=== PATIENT | female | born 1985 | race Caucasian/White ===

== ENCOUNTER 2016-09-29 14:50 | Outpatient (CLI) | payer OTHER | END 2016-09-29 14:51 | disposition home or self-care (01) | LOC: LAB.R 14:50 | PROVIDERS: ATTEND Physician Assistant Medical | DX: N30.01 Acute cystitis with hematuria (principal) | CPT/HCPCS: 87086 ==

== ENCOUNTER 2018-01-18 10:20 | Outpatient (CLI) | payer OTHER ==
[2018-01-18 10:30] LABS: HCG UR QUAL NEGATIVE
== END 2018-01-18 10:21 | disposition home or self-care (01) ==
LOC: LAB.R 10:20
PROVIDERS: ATTEND Physician Assistant Medical
DX: R10.2 Pelvic and perineal pain (principal); Z97.5 Presence of (intrauterine) contraceptive device; N30.00 Acute cystitis without hematuria
CPT/HCPCS: 81025; 87086

== ENCOUNTER 2018-01-18 12:04 | Outpatient (CLI) | payer OTHER ==
--- NOTE | 2018-01-18 15:20 | Ultrasound Report ---
Reason: PELVIC PAIN Procedure Date: 01/18/2018 Accession Number: [id number] / [id number] Procedure: US - Pelvic w/Transvaginal CPT Code: FULL RESULT: EXAM: PELVIC ULTRASOUND EXAM DATE: 01/18/2018 01:11 PM. CLINICAL HISTORY: PELVIC PAIN. LMP 10 518 COMPARISON: OB ultrasound 02/24/2014 TECHNIQUE: Realtime transabdominal pelvic scan performed to identify the uterus and adnexa and as an overview of other pelvic structures, followed by transvaginal scan to provide greater detail of the uterus and adnexa, with static image documentation. FINDINGS: Uterus: 8.9 x 3.5 x 5.2 cm, volume 85 cc. Anteverted position. Normal overall size and echotexture. Masses: None. Endometrium: 2.2 mm. IUD normally positioned within the endometrial canal Cervix: Unremarkable. Right Ovary: 2.5 x 1.9 x 2 cm, volume 6.9 cc. Normal echotexture and blood flow. Left Ovary: 3.2 x 1.8 x 2.2 cm, volume 6.6 cc. Normal echotexture and blood flow. Free Fluid: None. Other: None. IMPRESSION: Normal pelvic ultrasound. IUD normally positioned within the endometrial canal. RADIA
== END 2018-01-18 12:05 | disposition home or self-care (01) ==
LOC: DI 12:04
PROVIDERS: ATTEND Physician Assistant Medical
DX: R10.2 Pelvic and perineal pain (principal); Z97.5 Presence of (intrauterine) contraceptive device; N30.00 Acute cystitis without hematuria
CPT/HCPCS: 76830; 76856; 81025; 87086

== ENCOUNTER 2018-09-02 08:30 | Outpatient (CLI) | payer OTHER ==
[2018-09-02 12:26] LABS: BILIRUBIN,URINE NEGATIVE (NEGATIVE); GLUCOSE, URINE (UA) NEGATIVE (NEGATIVE); KETONES,URINE (UA) NEGATIVE (NEGATIVE); LEUKOCYTE ESTERASE, URINE SMALL (NEGATIVE); NITRITE,URINE NEGATIVE (NEGATIVE); OCCULT BLOOD,URINE MODERATE (NEGATIVE); PH,URINE 6.5 PH (5.0-7.5); PROTEIN,URINE NEGATIVE (NEGATIVE); UROBILINOGEN,URINE 0.2 (NORMAL) E.U./dL (NORMAL)
[2018-09-02 12:30] LABS: CLARITY,URINE CLEAR (CLEAR)
[2018-09-02 12:41] LABS: BACTERIA,URINE None Seen /HPF (None Seen); SQUAMOUS EPITHELIAL CELL,UR NONE SEEN (<= Few)
== END 2018-09-02 23:59 | disposition home or self-care (01) ==
LOC: LAB.R 08:30
PROVIDERS: ATTEND Nurse Practitioner
DX: N39.0 Urinary tract infection, site not specified (principal)
CPT/HCPCS: 81001; 81003; 87086

== ENCOUNTER 2018-09-28 16:58 | Outpatient (CLI) | payer OTHER ==
[2018-09-29 15:30] LABS: BILIRUBIN,URINE NEGATIVE (NEGATIVE); GLUCOSE, URINE (UA) NEGATIVE (NEGATIVE); KETONES,URINE (UA) NEGATIVE (NEGATIVE); LEUKOCYTE ESTERASE, URINE NEGATIVE (NEGATIVE); NITRITE,URINE NEGATIVE (NEGATIVE); OCCULT BLOOD,URINE NEGATIVE (NEGATIVE); PROTEIN,URINE NEGATIVE (NEGATIVE); UROBILINOGEN,URINE 0.2 (NORMAL) E.U./dL (NORMAL)
[2018-09-29 15:44] LABS: CLARITY,URINE CLEAR (CLEAR)
[2018-09-29 15:45] LABS: BACTERIA,URINE None Seen /HPF (None Seen); RBC,URINE 0-5 /HPF (0-5); SQUAMOUS EPITHELIAL CELL,UR RARE Squamous (<= Few)
[2018-09-29 22:59] LABS: CANDIDA GROUP DNA NEGATIVE (NEGATIVE); CANDIDA KRUSEI DNA NEGATIVE (NEGATIVE); TRICHOMONAS VAGINALIS DNA NEGATIVE (NEGATIVE)
== END 2018-09-28 23:59 | disposition home or self-care (01) ==
LOC: LAB.R 16:58
PROVIDERS: ATTEND Obstetrics & Gynecology
DX: N30.00 Acute cystitis without hematuria (principal); R10.2 Pelvic and perineal pain; N89.8 Other specified noninflammatory disorders of vagina
CPT/HCPCS: 81001; 87077; 87086; 87181; 87661; 87801

== ENCOUNTER 2019-09-01 16:17 | Outpatient (CLI) | payer OTHER ==
--- NOTE | 2019-09-08 10:07 | Ultrasound Report ---
Reason: PRESENCE OF IUD - ASSESS LOCATION Procedure Date: 09/01/2019 Accession Number: [id number] / [id number] Procedure: US - Pelvic Complete CPT Code: Final Report FULL RESULT: PROCEDURE: Pelvic Complete INDICATIONS: PRESENCE OF IUD - ASSESS LOCATION TECHNIQUE: Real-time transabdominal scanning was performed of the pelvic organs, with image documentation. Transvaginal exam was refused by the patient. COMPARISON: 01/18/2018. FINDINGS: Uterus: Uterus is normal in size at 10.5 x 4.3 x 3.9 cm. Endometrium measures 5 mm in combined thickness. IUD appears centered in the uterine cavity. Ovaries: Within normal limits. Right ovary measures 3.3 x 2.3 x 1.2 cm. Left ovary measures 2.9 x 2.7 x 1.9 cm. Other: No free pelvic fluid. IMPRESSION: Exam is somewhat limited without transvaginal portion. 1. IUD appears centered in the uterine cavity. 2. Uterus/endometrium and ovaries are within normal limits. Note: [employer] worksheet reports bilateral extrarenal pelvis or dilated proximal ureters. However, no images are available to confirm this finding. If concern for patients renal function or hydronephrosis recommend dedicated renal ultrasound. Reviewed by: Cl Sorensen MD on 09/08/2019 10:05 AM PDT Approved by: Cl Sorensen MD on 09/08/2019 10:05 AM PDT Station ID: [id number]
== END 2019-09-01 16:18 | disposition home or self-care (01) ==
LOC: DI 16:17
PROVIDERS: ATTEND Obstetrics & Gynecology
DX: Z97.5 Presence of (intrauterine) contraceptive device (principal)
CPT/HCPCS: 76830; 76856

== ENCOUNTER 2019-09-19 16:00 | Outpatient (CLI) | payer OTHER | END 2019-09-19 16:01 | disposition home or self-care (01) | LOC: LAB 16:00 | PROVIDERS: ATTEND Obstetrics & Gynecology | DX: Z01.812 Encounter for preprocedural laboratory examination (principal); Z11.59 Encounter for screening for other viral diseases | CPT/HCPCS: 81599 ==

== ENCOUNTER 2019-09-19 16:15 | Outpatient (CLI) | payer OTHER ==
[2019-09-19 18:12] LABS: BASOPHILS % (AUTO) 0.3 %; EOSINOPHILS # (AUTO) 0.1 10^3/uL (0.0-0.7); EOSINOPHILS % (AUTO) 0.9 %; HGB - HEMOGLOBIN 13.3 g/dL (12.0-16.0); LYMPHOCYTES # (AUTO) 1.7 10^3/uL (1.5-3.5); LYMPHOCYTES % (AUTO) 24.5 %; MEAN CORPUSCULAR HEMOGLOBIN 31.1 pg (27.0-31.0); MEAN CORPUSCULAR HGB CONC 33.3 g/dL (32.0-36.0); MEAN CORPUSCULAR VOLUME 93.7 fL (81.0-99.0); MONOCYTES # (AUTO) 0.5 10^3/uL (0.0-1.0); MONOCYTES % (AUTO) 7.2 %; NEUTROPHILS # (AUTO) 4.6 10^3/uL (1.5-6.6); NEUTROPHILS % (AUTO) 66.8 %; PLT - PLATELET COUNT 226 10^3/uL (130-450); RED BLOOD COUNT 4.27 10^6/uL (4.20-5.40); RED CELL DISTRIBUTION WIDTH 12.3 % (12.0-15.0); WHITE BLOOD COUNT 6.9 x10^3/uL (4.8-10.8)
== END 2019-09-19 23:59 | disposition home or self-care (01) ==
LOC: LAB.R 16:15
PROVIDERS: ATTEND Nurse Practitioner
DX: Z01.812 Encounter for preprocedural laboratory examination (principal); Z11.59 Encounter for screening for other viral diseases; Z97.5 Presence of (intrauterine) contraceptive device
CPT/HCPCS: 81599; 85025

== ENCOUNTER 2019-09-22 07:14 | Day surgery (SDC) | payer OTHER ==
[~2019-09-22 07:14] MED LIST: ACETAMINOPHEN 1,000 MG/100 ML 100 ML IV ONE; CELECOXIB 100 MG CAPSULE PO ONE; GABAPENTIN 400 MG CAPSULE ONE
[2019-09-22] MEDS ORDERED: KETAMINE 500 MG/10 ML VIAL IVP ONE (07:15)
[2019-09-22] MEDS ORDERED: ePHEDrine 50 MG/ML VIAL IVP ONE (07:15)
[2019-09-22] MEDS ORDERED: ONDANSETRON 4 MG/2 ML VIAL IVP ONE (07:15)
[2019-09-22] MEDS ORDERED: DEXAMETHASONE 4 MG/ML VIAL IVP ONE (07:15)
[2019-09-22] MEDS ORDERED: PROPOFOL 200 MG/20 ML VIAL IVP ONE (07:15)
[2019-09-22] MEDS ORDERED: MIDAZOLAM 2 MG/2 ML VIAL IVP ONE (07:15)
[2019-09-22 07:35] LABS: HCG UR QUAL NEGATIVE
[2019-09-22] MEDS ORDERED: LACTATED RINGERS 1,000 ML IV ONE (07:38)
--- NOTE | 2019-09-22 08:43 | ANESTHESIA ---
Pre-Anesthesia VS, & Labs - Diagnosis retained, IUD - Procedure hysterscopic retrival of IUD. Mirena IUD replacement possible laparoscopic retrieval of IUD Vital Signs: Temp Pulse Resp BP Pulse Ox 36.5 C 60 16 108/65 100 09/22/19 07:19 09/22/19 07:19 09/22/19 07:19 09/22/19 07:19 09/22/19 07:19 Height 5 ft 6 in Weight (kg) 69 kg - NPO >8 hours - Is Patient ?: No - Lab Results Current Lab Results: Laboratory Tests 09/22/19 07:39: POC Whole Bld Glucose 92 Home Medications and Allergies Home Medications: Ambulatory Orders Cholecalciferol [Vitamin D3] 2,000 unit PO DAILY 09/19/19 Loratadine [Claritin] 10 mg PO DAILY 09/19/19 Multivitamin 1 each PO DAILY 09/19/19 Cholecalciferol [Vitamin D3] 2,000 unit PO DAILY 09/19/19 Loratadine [Claritin] 10 mg PO DAILY 09/19/19 Multivitamin 1 each PO DAILY 09/19/19 Allergies/Adverse Reactions: Allergies Allergy/AdvReac Type Severity Reaction Status Date / Time No Known Drug Allergies Allergy Verified 04/26/14 12:26 Anes History & Medical History - Anesthetic History Anesthesia Complications: reports: No previous complications - Medical History Cardiovascular: reports: None Pulmonary: reports: None Gastrointestinal: reports: None Urinary: reports: None Neuro: reports: None Musculoskeletal: reports: None Endocrine/Autoimmune: reports: None Blood Disorders: reports: None Skin: reports: None Smoking Status: Never smoker Psychosocial: reports: Cannabis (daily) - Surgical History General: Appendectomy Eyes Ears Nose Throat (EENT): Tonsil/Adenoidectomy Gynecologic: section Exam General: Alert, Oriented x3, Cooperative, No acute distress Dental: WNL Mouth Openin Fingerbreadth Neck Mobility: Normal Mallampati classification: I Thyromental Distance: greater than 6 cm Respiratory: Lungs clear, Normal breath sounds, No respiratory distress, No acce ssory muscle use Cardiovascular: Regular rate, Normal S1, Normal S2, No murmurs Mental/Cognitive Status: Alert/Oriented X3, Normal for patient Plan Anesthesia Type: General Consent for Procedure(s) Verified and Reviewed: Yes Code Status: Attempt Resuscitation ASA classification: 1-Healthy patient Is this case an emergency?: No
[2019-09-22] MEDS ORDERED: LEVONORGESTREL 20 MCG/24H IUD IY ONE ×2 (09:33→10:16)
[2019-09-22] MEDS ORDERED: LIDOCAINE 1%-EPI 1:100000 20 ML MDV ONE (09:33)
[2019-09-22] MEDS ORDERED: LIDOCAINE 1%-EPI 1:100000 20 ML MDV SUBQ ONE ×2 (09:48)
--- NOTE | 2019-09-22 10:50 | OPERATIVE REPORT ---
Operative Report - General Procedure Date: 09/22/19 Planned Procedure: Hysteroscopic removal of IUD Insertion of Mirena IUD Pre-Op Diagnosis: Retained IUD with missing IUD strings. Failed attempt at removal Procedure Performed: Hysteroscopic removal of retained IUD Insertion of Mirena IUD, Lot# [id number] Post Op Diagnosis: Same - Procedure Note Primary Surgeon: Vicki Green MD Anesthesia Provider: Elian Carter CRNA Anesthesia Technique: General LMA Pathology: None IV Fluids (mL): 700 Estimated Blood Loss (mL): 10 Indications: Patient is a 34 yo female with an Mirena IUD that needs replacement. The IUD strings are retained within the uterus and attempts at intrauterine removal in clinic were not successful. Formal us showed intrauterine placement of the IUD. She presents today for hysteroscopic retrieval of the IUD and replacement with a new IUD. Risks/benefits/alternatives were reviewed and consents were obtained and confirmed. Findings: Parous cervix without visible strings. IUD embedded within the uterine cavity. After removal of the IUD, the uterine cavity was smooth and without structural defect or abnormality and bilateral tubal ostia were noted. Complications: None - Other Other Information/Narrative: Risks benefits and alternatives to the procedure were reviewed. Consent was again confirmed. Patient was taken to the operating room where she underwent general anesthesia. She was positioned in dorsolithotomy position with legs resting in yellowfin stirrups. She was prepped and draped in the usual sterile fashion. Preoperative antibiotics were not indicated. Preoperative checklist was performed. Exam under anesthesia was performed. Speculum was placed in the vagina and the cervix was visualized. Single-tooth tenaculum was placed at the anterior cervical lip. Paracervical block was administered using a total of 20 cc of 1% lidocaine with epinephrine was injected at the 4:00 and 8:00 positions lateral to the portio of the cervix. The cervical os was serially dilated with Hegar dilators to accommodate the caliber of the diagnostic hysteroscope. Uterus sounded to 9 cm. An IUD hook was inserted into the uterus to attempt blind removal fo the IUD. Several passes of the IUD hook were not successful in retreieving the IUD. The hysteroscope was inserted and findings were noted as above. The hysteroscopic grasper was inserted through the operative port. The IUD was grasped and removed from the uterine cavity without difficulty. The hysteroscope was reinserted to examined the uterine cavity. Uterine cavity was smooth at close of the procedure. Hysteroscope was removed. The Mirena IUD was inserted according to package directions. Strings were trimmed to 3-4 cm. Tenaculum was removed. Tenaculum sites were noted to be hemostatic. All instruments were removed from the vagina. Procedure was well-tolerated without complication. Fluid deficit: 250 cc NS
[2019-09-22] MEDS ORDERED: oxyCODONE 5 MG TABLET PO PRN (11:03)
[2019-09-22 12:30] VITALS: BP 117/70
== END 2019-09-22 07:15 | disposition home or self-care (01) ==
LOC: SDS 07:14
PROVIDERS: ATTEND Obstetrics & Gynecology
DX: Z30.433 Encounter for removal and reinsertion of intrauterine contraceptive device (principal); T83.39XA Other mechanical complication of intrauterine contraceptive device, initial encounter
CPT/HCPCS: 58300; 58562; 81025; A9270; J0131; J7120; J7298

== ENCOUNTER 2020-04-30 08:00 | Outpatient (CLI) | payer OTHER ==
[2020-04-30 21:43] LABS: CANDIDA GROUP DNA NEGATIVE (NEGATIVE); CANDIDA KRUSEI DNA NEGATIVE (NEGATIVE); TRICHOMONAS VAGINALIS DNA NEGATIVE (NEGATIVE)
== END 2020-04-30 23:59 | disposition home or self-care (01) ==
LOC: LAB.R 08:00
PROVIDERS: ATTEND Obstetrics & Gynecology
DX: B37.9 Candidiasis, unspecified (principal)
CPT/HCPCS: 87661; 87801

== ENCOUNTER 2022-12-01 18:05 | Emergency (ER) | payer OTHER ==
[2022-12-01 18:13] VITALS: BP 135/66; O2SAT 100
[2022-12-01] MEDS ORDERED: LIDOCAINE-EPINEPH-TETRACAINE 3 ML SYRINGE TOP STA (19:20)
--- NOTE | 2022-12-01 20:57 | ED Physician Documentation ---
History of Present Illness - Stated complaint Stated Complaint: RT HAND LAC - Chief complaint Chief Complaint: Laceration - History obtained from History obtained from: Patient - History of Present Illness Timing: Today Pain level max: 3 Pain level now: 1 - Additonal information Additional information: 37-year-old female presents to the emergency department with a laceration to the right hand, hypothenar eminence. This has a flap laceration. She states that it was from a mandolin slicer. She attempted to repair with quick clot and derma ledezma at home. She states she has had continued bleeding. Tetanus shot is up-to-date. Patient is right handed. Review of Systems : denies: Now [place] [facility] PAST MEDICAL HISTORY - Past Medical History Past Medical History: No Neuro: None - Past Surgical History Past Surgical History: Yes General: Appendectomy /SAAS ARCHITECT: section - Present Medications Home Medications: Ambulatory Orders Medication Instructions Recorded Confirmed No Known Home Medications 12/01/22 12/01/22 - Allergies Allergies/Adverse Reactions: Allergies Allergy/AdvReac Type Severity Reaction Status Date / Time No Known Drug Allergies Allergy Verified 12/01/22 18:09 - Social History Does the pt smoke?: No Smoking Status: Never smoker Does the pt drink ETOH?: No Does the pt have substance abuse?: No PD ED PE NORMAL - Vitals Vital signs reviewed: Yes - General General: Alert and oriented X 3, No acute distress - Derm Derm: Warm and dry - Extremities Extremities: Other (R hand hypothenar emminence - 2cm flap laceration. NVI. tendons intact. subcutaneous.) - Neuro Neuro: Alert and oriented X 3 Results - Vitals Vitals: Vital Signs - 24 hr 12/01/22 18:09 Temperature 36.5 C Heart Rate 83 Respiratory 16 Rate Blood Pressure 135/66 H O2 Saturation 100 Oxygen O2 Source Room air Procedures - Laceration (location) R hand Length in cm: 2 Wound type: Flap, Superficial, Clean Neurovascular status: Sensory intact, Motor intact, Vascular intact Tendon involvement: Tendon intact Anesthesia: LET, Lidocaine 1% Wound preparation: Irrigated copiously NS, Wound explored, To the base Skin layer closure: Nylon, Interrupted, Size #-0 - enter number (4) Other: Patient tolerated well, No complications, Neurovascular intact, Dressing applied, Tetanus UTD PD Medical Decision Making - ED course Complexity details: considered differential, d/w patient ED course: The derma ledezma and quick clot were removed. After this, LET was applied. 1% lidocaine was then injected. The laceration was repaired. Patient tolerated well. No complications. Tetanus shot up-to-date. Wound care instructions given at bedside Patient counseled regarding signs and symptoms for which I believe and urgent re-evaluation would be necessary. Patient with good understanding of and agreement to plan and is comfortable going home at this time. This document was made in part using voice recognition software. While efforts are made to proofread this document, sound alike and grammatical errors may occur. Departure - Departure Disposition: Home, Self Care Clinical Impression: Hand laceration Qualifiers: Encounter type: initial encounter Foreign body presence: unspecified Laterality: right Qualified Code(s): S61.411A - Laceration without foreign body of right hand, initial encounter Condition: Good Instructions: ED Laceration Hand Follow-Up: your,doctor in 10-14 days [Other] Comments: The sutures should be removed in 10 to 14 days. Please follow-up with your doctor for further care. Please return if you worsen. Please return if you notice redness, swelling or drainage from the wound. Forms: PCP List Discharge Date/Time: 12/01/22 21:03
== END 2022-12-01 21:03 | disposition home or self-care (01) ==
LOC: ED 18:05
DX: S61.411A Laceration without foreign body of right hand, initial encounter (principal); W27.8XXA Contact with other nonpowered hand tool, initial encounter; Y93.G1 Activity, food preparation and clean up
CPT/HCPCS: 12001; 99282

== ENCOUNTER 2023-11-05 21:35 | Emergency (ER) | payer OTHER ==
[2023-11-05 22:30] LABS: BASOPHILS % (AUTO) 0.2 %; EOSINOPHILS % (AUTO) 0.2 %; HCT - HEMATOCRIT 42.4 % (37.0-47.0); HGB - HEMOGLOBIN 14.1 g/dL (12.0-16.0); LYMPHOCYTES # (AUTO) 0.8 10^3/uL (1.5-3.5); LYMPHOCYTES % (AUTO) 8.9 %; MEAN CORPUSCULAR HEMOGLOBIN 30.7 pg (27.0-31.0); MEAN CORPUSCULAR HGB CONC 33.3 g/dL (32.0-36.0); MEAN CORPUSCULAR VOLUME 92.4 fL (81.0-99.0); MEAN PLATELET VOLUME 9.4 fL (7.9-10.8); MONOCYTES # (AUTO) 0.6 10^3/uL (0.0-1.0); MONOCYTES % (AUTO) 7.2 %; NEUTROPHILS # (AUTO) 7.3 10^3/uL (1.5-6.6); NEUTROPHILS % (AUTO) 83.3 %; PLT - PLATELET COUNT 181 10^3/uL (130-450); RED BLOOD COUNT 4.59 10^6/uL (4.20-5.40); WHITE BLOOD COUNT 8.7 x10^3/uL (4.8-10.8)
--- NOTE | 2023-11-05 22:38 | ED Physician Documentation ---
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 +sick contacts. denies fever, dysuria. PD PAST MEDICAL HISTORY - Past Medical History Past Medical History: No Cardiovascular: None Respiratory: None Neuro: None Endocrine/Autoimmune: None GI: None AB INITIO ETL DEVELOPER: None : None HEENT: None Psych: None Musculoskeletal: None Derm: None - Past Surgical History Past Surgical History: Yes General: Appendectomy /AB INITIO ETL DEVELOPER: section - Present Medications Home Medications: Ambulatory Orders Medication Instructions Recorded Confirmed Ondansetron Odt [Zofran Odt] 4 mg TL Q6H PRN #10 tablet 11/05/23 - Allergies Allergies/Adverse Reactions: Allergies Allergy/AdvReac Type Severity Reaction Status Date / Time No Known Drug Allergies Allergy Verified 11/05/23 22:15 - Social History Does the pt smoke?: No Smoking Status: Never smoker Does the pt drink ETOH?: No Does the pt have substance abuse?: No - Immunizations Immunizations are current?: No - POLST Patient has POLST: No PD ED PE NORMAL - Vitals Vital signs reviewed: Yes - General General: Alert and oriented X 3, No acute distress, Well developed/nourished - HEENT HEENT: Atraumatic, PERRL, EOMI - Neck Neck: Supple, no meningeal sign - Cardiac Cardiac: RRR - Respiratory Respiratory: No respiratory distress, Clear bilaterally - Abdomen Abdomen: Non tender, Non distended - Derm Derm: Normal color, Warm and dry - Extremities Extremities: No deformity - Neuro Neuro: No motor deficit, No sensory deficit - Psych Psych: Normal mood, Normal affect Results - Vitals Vitals: Vital Signs - 24 hr 11/05/23 11/05/23 11/05/23 22:09 23:00 23:39 Temperature 36.7 C 36.3 C L Heart Rate 83 56 L 74 Respiratory 15 16 Rate Blood Pressure 122/73 120/80 107/65 O2 Saturation 97 100 99 Oxygen O2 Source Room air - Labs Labs: Laboratory Tests 11/05/23 11/05/23 11/05/23 22:27 22:27 22:32 WBC 8.7 RBC 4.59 Hgb 14.1 Hct 42.4 MCV 92.4 MCH 30.7 MCHC 33.3 RDW 12.0 Plt Count 181 MPV 9.4 Neut # (Auto) 7.3 H Lymph # (Auto) 0.8 L [place] # (Auto) 0.6 Eos # (Auto) 0.0 Baso # (Auto) 0.0 Absolute Nucleated RBC 0.00 Nucleated RBC % 0.0 Sodium 137 Potassium 3.2 L Chloride 100 L Carbon Dioxide 28 Anion Gap 9.0 BUN 13 Creatinine 0.7 Estimated GFR (MDRD) 94 Glucose 111 H Calcium 9.9 Total Bilirubin 0.5 AST 22 ALT 18 Alkaline Phosphatase 72 Total Protein 7.9 Albumin 4.6 Globulin 3.3 Albumin/Globulin Ratio 1.4 Lipase 11 Urine Color YELLOW Urine Clarity HAZY Urine pH 6.0 Ur Specific [place] 1.025 Urine Protein NEGATIVE Urine Glucose (UA) NEGATIVE Urine Ketones 40 H Urine Occult Blood SMALL H Urine Nitrite NEGATIVE Urine Bilirubin NEGATIVE Urine Urobilinogen 0.2 (NORMAL) Ur Leukocyte Esterase NEGATIVE Urine RBC 0-5 Urine WBC 0-3 Ur Squamous Epith Cells MANY Squamous H Urine Bacteria Few Ur Microscopic Review INDICATED Urine Culture Comments NOT INDICATED Urine HCG, Qual NEGATIVE Nasal Adenovirus (PCR) Nasal B. parapertussis DNA (PCR) Nasal Coronavir 229E PCR Nasal Coronavir HKU1 PCR Nasal Coronavir NL63 PCR Nasal Coronavir OC43 PCR Nasal Enterovir/Rhinovir PCR Nasal Influenza B PCR Nasal Influenza A PCR Nasal Parainfluen 1 PCR Nasal Parainfluen 2 PCR Nasal Parainfluen 3 PCR Nasal Parainfluen 4 PCR Nasal RSV (PCR) Nasal B.pertussis DNA PCR Nasal C.pneumoniae (PCR) Flaco Human Metapneumo PCR Nasal M.pneumoniae (PCR) Nasal SARS-CoV-2 (PCR) 11/05/23 22:40 WBC RBC Hgb Hct MCV MCH MCHC RDW Plt Count MPV Neut # (Auto) Lymph # (Auto) [place] # (Auto) Eos # (Auto) Baso # (Auto) Absolute Nucleated RBC Nucleated RBC % Sodium Potassium Chloride Carbon Dioxide Anion Gap BUN Creatinine Estimated GFR (MDRD) Glucose Calcium Total Bilirubin AST ALT Alkaline Phosphatase Total Protein Albumin Globulin Albumin/Globulin Ratio Lipase Urine Color Urine Clarity Urine pH Ur Specific [place] Urine Protein Urine Glucose (UA) Urine Ketones Urine Occult Blood Urine Nitrite Urine Bilirubin Urine Urobilinogen Ur Leukocyte Esterase Urine RBC Urine WBC Ur Squamous Epith Cells Urine Bacteria Ur Microscopic Review Urine Culture Comments Urine HCG, Qual Nasal Adenovirus (PCR) NOT DETECTED Nasal B. parapertussis DNA (PCR) NOT DETECTED Nasal Coronavir 229E PCR NOT DETECTED Nasal Coronavir HKU1 PCR NOT DETECTED Nasal Coronavir NL63 PCR NOT DETECTED Nasal Coronavir OC43 PCR NOT DETECTED Nasal Enterovir/Rhinovir PCR NOT DETECTED Nasal Influenza B PCR NOT DETECTED Nasal Influenza A PCR NOT DETECTED Nasal Parainfluen 1 PCR NOT DETECTED Nasal Parainfluen 2 PCR NOT DETECTED Nasal Parainfluen 3 PCR NOT DETECTED Nasal Parainfluen 4 PCR NOT DETECTED Nasal RSV (PCR) NOT DETECTED Nasal B.pertussis DNA PCR NOT DETECTED Nasal C.pneumoniae (PCR) NOT DETECTED Flaco Human Metapneumo PCR NOT DETECTED Nasal M.pneumoniae (PCR) NOT DETECTED Nasal SARS-CoV-2 (PCR) DETECTED A PD Medical Decision Making - ED course ED course: 38yF p/w epigastric pain, n/v/d, without red flag symptoms. feeling better s/p symptomatic care. labwork benign. plan to f/u outpatient. return precautions given. Departure - Departure Disposition: 01 Home, Self Care Clinical Impression: Nausea, Diarrhea Condition: Stable Instructions: Abdominal Pain Prescriptions: Ondansetron Odt [Zofran Odt] 4 mg TL Q6H PRN #10 tablet PRN Reason: Nausea / Vomiting Comments: You were seen in the emergency department for medical evaluation. Your labwork looked good. Please check the results of your viral nose swab on your patient health portal. Please follow-up with your primary care provider and return to the emergency department if you have any new or worsening symptoms or other concerns. Forms: PCP List Discharge Date/Time: 11/05/23 23:39
[2023-11-05 22:44] LABS: ALBUMIN 4.6 g/dL (3.2-5.5); ALBUMIN/GLOBULIN RATIO 1.4 (1.0-2.2); BILIRUBIN,TOTAL 0.5 mg/dL (0.2-1.0); CALCIUM 9.9 mg/dL (8.5-10.3); CREATININE 0.7 mg/dL (0.6-1.3); POTASSIUM 3.2 mmol/L (3.5-4.5); TOTAL PROTEIN 7.9 g/dL (6.4-8.9)
[2023-11-05 22:49] LABS: BILIRUBIN,URINE NEGATIVE (NEGATIVE); GLUCOSE, URINE (UA) NEGATIVE (NEGATIVE); KETONES,URINE (UA) 40 mg/dL (NEGATIVE); LEUKOCYTE ESTERASE, URINE NEGATIVE (NEGATIVE); NITRITE,URINE NEGATIVE (NEGATIVE); OCCULT BLOOD,URINE SMALL (NEGATIVE); PROTEIN,URINE NEGATIVE (NEGATIVE); UROBILINOGEN,URINE 0.2 (NORMAL) E.U./dL (NORMAL)
[2023-11-05] MEDS: ONDANSETRON 4 MG/2 ML VIAL IVP STA (22:52)
[2023-11-05] MEDS: FAMOTIDINE 20 MG/2 ML VIAL IVP STA (22:52)
[2023-11-05 22:53] LABS: CLARITY,URINE HAZY (CLEAR); HCG UR QUAL NEGATIVE
[2023-11-05] MEDS: HYDROmorphone 0.5 MG/0.5 ML SYRINGE IVP STA (22:53)
[2023-11-05] MEDS: SODIUM CHLORIDE 0.9% 1,000 ML IV STA (22:53)
[2023-11-05 23:03] LABS: BACTERIA,URINE Few /HPF (None Seen); RBC,URINE 0-5 /HPF (0-5); SQUAMOUS EPITHELIAL CELL,UR MANY Squamous (<= Few); WBC,URINE 0-3 /HPF (0-5)
[2023-11-05 23:40] VITALS: BP 107/65; O2SAT 99
[2023-11-06 00:08] LABS: CORONAVIRUS 229E-RESP PCR NOT DETECTED; CORONAVIRUS HKU1-RESP PCR NOT DETECTED; CORONAVIRUS NL63-RESP PCR NOT DETECTED; CORONAVIRUS OC43-RESP PCR NOT DETECTED
[2023-11-06 00:11] LABS: B. PARAPERTUSSIS- RESP PCR PAN NOT DETECTED; B. PERTUSSIS- RESP PCR PANEL NOT DETECTED; C. PNEUMONIAE- RESP PCR PANEL NOT DETECTED; HUMAN METAPNEUMOVIRUS NOT DETECTED; INFLUENZA A- RESP PCR PANEL NOT DETECTED; INFLUENZA B - RESP PCR PANEL NOT DETECTED; M. PNEUMONIAE- RESP PCR PANEL NOT DETECTED; PARAINFLUENZA VIRUS 1 NOT DETECTED; PARAINFLUENZA VIRUS 2 NOT DETECTED; PARAINFLUENZA VIRUS 3 NOT DETECTED; PARAINFLUENZA VIRUS 4 NOT DETECTED; RHINOVIRUS/ENTEROVIRUS NOT DETECTED; RSV- RESP PCR PANEL NOT DETECTED; SARS-CoV-2 -RESP PCR PANEL DETECTED
== END 2023-11-05 23:39 | disposition home or self-care (01) ==
LOC: ED 21:35
DX: R10.13 Epigastric pain (principal); R11.2 Nausea with vomiting, unspecified; R19.7 Diarrhea, unspecified
CPT/HCPCS: 36415; 80053; 81001; 81025; 83690; 85025; 87633; 96374; 96375; 99283; J1170; 81003; 87086